=== PATIENT | male | born 1940 | race Caucasian/White ===

== ENCOUNTER 2017-07-13 16:31 | Outpatient (CLI) | payer MEDICARE, BC ==
[~2017-07-13] VITALS: Ht 182.9 cm; Wt 94.5 kg
[2017-07-13 17:07] VITALS: BP 152/90; Ht 182.9 cm; Wt 94.5 kg
--- NOTE | 2017-07-13 17:15 | NUR ---
IN AND OUT CATH DONE PER STERILE PROCEDURE. URINE OBTAINED AND TAKEN TO LAB.
--- NOTE | 2017-07-13 17:38 | NUR ---
D/C INSTRUCTIONS EXPLAINED TO PT. D/C'D HOME WITH SPOUSE, AMBULATORY, ALERT, NO PROBLEMS NOTED.
[2017-07-13 17:44] LABS: APPEARANCE CLEAR (CLEAR); BILIRUBIN NEGATIVE (NEGATIVE); COLOR YELLOW (YELLOW); GLUCOSE NEGATIVE (NEGATIVE); KETONE NEGATIVE (NEGATIVE); LEUKOCYTE ESTERASE NEGATIVE (NEGATIVE); NITRITE NEGATIVE (NEGATIVE); PROTEIN NEGATIVE (NEGATIVE); SPECIFIC GRAVITY 1.015 (1.005-1.020); UROBILINOGEN NORMAL (NORMAL)
[2017-07-16] MEDS ORDERED: EFFEXOR XR150 MG PO (11:46)
[2017-07-16] MEDS ORDERED: FLOMAX0.4 MG PO (11:47)
[2017-07-16] MEDS ORDERED: PROSCAR5 MG PO (11:47)
[2017-07-16] MEDS ORDERED: BUPROPION XL300 MG PO (11:47)
[2017-07-16] MEDS ORDERED: ULTRAM50 MG PO (11:48)
[2017-07-16] MEDS ORDERED: HYDROCODON-ACE1 EAC7 PO (11:48)
[2017-07-16] MEDS ORDERED: ADVIL200 MG PO (11:49)
[2017-07-16] MEDS ORDERED: STADOL NASAL S2.5 ML NASAL (11:50)
[2017-07-16] MEDS ORDERED: LODINE500 MG PO (11:51)
== END 2017-07-13 17:25 | disposition home or self-care (01) ==
LOC: D.OPS 16:31
PROVIDERS: Specialist
DX: N39.0 Urinary tract infection, site not specified (principal)

== ENCOUNTER 2017-07-16 10:39 | Outpatient (CLI) | payer MEDICARE, BC | END 2017-07-17 13:26 | disposition home or self-care (01) | LOC: D.OPS 10:39 → D.MS 14:50 | DX: M48.56XA Collapsed vertebra, not elsewhere classified, lumbar region, initial encounter for fracture (principal); N40.0 Benign prostatic hyperplasia without lower urinary tract symptoms; Z87.891 Personal history of nicotine dependence ==